=== PATIENT | male | born 1930 | race Caucasian/White ===

== ENCOUNTER → 2016-05-16 | Outpatient (REF) | payer MEDICARE ==
[~2016-05-16] MED LIST: /WARF5TA PO; ACET50TA PO; ANUC25SU PR; DOCU10ELUD PO; ENAL10TA2 PO; FERR325T3 PO; FLUOCRE TOP; HYDRPOW14 PR; LEVA500T PO; LYRI75CA PO; METAPKT PO; MULTCAP11 PO; NIFE15CA PO; PANT20TA PO; PERC2.5T PO; PERCOCET PO; PREPOI PR; REST0.05 OU; SYSTSOL11 OU; TYLE325T5 PO; ULTR50TA PO; VASO10TA8; ZANT300T PO
== END ==
LOC: M SMT 12:45
PROVIDERS: ATTEND Nurse Practitioner Family
DX: N39.41 Urge incontinence (principal)
CPT/HCPCS: 51798; 81001; 87086; G0463

== ENCOUNTER → 2018-04-10 | Outpatient (CLI) | payer MEDICARE ==
[~2018-04-10] MED LIST changes: +LEVA1TAB2 PO; -LEVA500T PO
== END ==
LOC: M SMT 11:17
PROVIDERS: ATTEND Nurse Practitioner Women's Health
DX: Z85.46 Personal history of malignant neoplasm of prostate (principal)
CPT/HCPCS: 36415; 84153; G0463